=== PATIENT | female | born 1960 | race Caucasian/White ===

== ENCOUNTER 2024-06-10 16:25 | Emergency (ER) | payer MEDICARE, OTHER ==
[~2024-06-10] VITALS: Ht 170.2 cm; Wt 142.0 kg
[~2024-06-10 16:25] MED LIST: DAILY MULTIPLE1 EACH PO; GLUCOPHAGE500 MG PO; IBUPROFEN800 MG PO; LEVOTHYROXINE200 MCG PO; NORCO 5-325 TA1 EACH PO; NORCO 7.5-3251 EACH PO; SUPER B COMPLE150 MG PO; VITAMIN B122500 MCG PO; VITAMIN D-32000 UNI1 PO; VITAMIN D250000 UNIT PO; VITAMIN D50000 UNI1 PO
[2024-06-10] MEDS ORDERED: NITROGLYCERIN 0.4 MG SUBL SL PRN (16:30)
[2024-06-10] MEDS ORDERED: ASPIRIN 81 MG CHEW PO ONE (16:30)
[2024-06-10] MEDS ORDERED: LORAZEPAM1 MG PO (16:35)
[2024-06-10] MEDS ORDERED: VICTOZA 2-0.6 MG/0.1 SUB-Q (16:36)
[2024-06-10] MEDS ORDERED: dilTIAZem HCL 25 MG/5 ML VIAL IV ONE (16:45)
[2024-06-10] MEDS ORDERED: DILTIAZEM HCl/D5W 125 ML IV ONE (16:45)
[2024-06-10 16:58] LABS: BASOPHILS 0.9 % (0-2); EOSINOPHILS 1.1 % (0-6); HEMATOCRIT 44.4 % (35.0-50.0); HEMOGLOBIN 15.2 g/dL (12.0-18.0); LYMPHOCYTES 13.7 % (24-44); MCH 31.2 (27-36); MCHC 34.2 g/dl (30-36); MCV 91.3 fl (81-99); MONOCYTES 7.9 % (0-12); NEUTROPHILS 76.4 % (39-80); PLATELET COUNT 286 K/uL (140-440); RBC 4.86 M/ul (4.3-5.7); RDW 15.2 (10.5-15.0)
[2024-06-10 17:15] LABS: ALBUMIN 3.8 g/dL (3.4-5.0); ANION GAP 18.8 (7-21); BILIRUBIN, TOTAL 0.8 ng/dL (0.2-1.0); BUN/CREATININE RATIO 15.9 (6.0-28.6); CALCIUM 9.1 mg/dL (8.5-10.1); CREATININE, SERUM 0.88 mg/dL (0.55-1.02); MAGNESIUM 1.4 mg/dL (1.8-2.4); POTASSIUM 3.8 mmol/L (3.5-5.1); PROTEIN, TOTAL 7.6 g/dL (6.4-8.2)
[2024-06-10] MEDS ORDERED: MAGNESIUM SULFATE 2 GM/50 ML BAG IV ONE (18:15)
[2024-06-10] MEDS ORDERED: HEParin SOD (PORCINE) 5,000 UNIT/ML SYR IV ONE (19:30)
[2024-06-10] MEDS ORDERED: HEPARIN SOD,PORK IN 0.45% NACL 500 ML IV SCH (19:30)
[2024-06-10 19:31] LABS: INR 1.09 (0.80-1.30); PROTIME 13.7 Sec (11.2-14.2)
--- NOTE | 2024-06-10 20:36 | EKG ---
[facility] [address] [place] [address] Signed Atrial flutter with 2:1 AV conduction Rightward axis Septal infarct (cited on or before 25-MAR-2018) Abnormal ECG When compared with ECG of 25-MAR-2018 12:35, Atrial flutter has replaced Sinus rhythm Vent. rate has increased BY 67 BPM QRS duration has increased Confirmed by Tu Duran MD ([id number]) on 06/10/2024 8:36:05 PM Electronically Signed By: TU DURAN MD 06/10/242035 PATIENT NAME: MELIDA MEZA Electrocardiogram DATE OF : 62 PHYSICIAN: TU DURAN MD REPORT #: [id number] REPORT IS CONFIDENTIAL AND NOT TO BE RELEASED WITHOUT AUTHORIZATION
[2024-06-10 21:10] VITALS: BP 126/61
== END 2024-06-10 21:10 | disposition short-term general hospital (02) ==
LOC: ED 16:25
PROVIDERS: Emergency Medicine
DX: I48.92 Unspecified atrial flutter (principal); E83.42 Hypomagnesemia; E03.9 Hypothyroidism, unspecified; F17.200 Nicotine dependence, unspecified, uncomplicated; Z91.040 Latex allergy status; Z88.5 Allergy status to narcotic agent; Z79.890 Hormone replacement therapy; Z79.899 Other long term (current) drug therapy
CPT/HCPCS: 36415; 71045; 80053; 83735; 84484; 85025; 85610; 85730; 93005; 93010; 96365; 96375; 99285-25; A9270; J1644; J3475

== ENCOUNTER 2024-10-20 13:17 | Inpatient (IN) | payer MEDICARE, OTHER ==
[2024-10-20] VITALS (7 sets, daily range): BP systolic 70–123; BP diastolic 41–73
[~2024-10-20] VITALS: Ht 170.2 cm; Wt 129.9 kg
[~2024-10-20 13:17] MED LIST changes: +LORAZEPAM1 MG PO; +VICTOZA 2-0.6 MG/0.1 SUB-Q
[2024-10-20] MEDS ORDERED: METOPROLOL SUCC50 MG PO (13:46)
[2024-10-20] MEDS ORDERED: LEVOTHYROXINE50 MCG PO (13:46)
[2024-10-20] MEDS ORDERED: JARDIANCE10 MG PO (13:46)
[2024-10-20] MEDS ORDERED: ELIQUIS5 MG PO (13:46)
[2024-10-20] MEDS ORDERED: LIOTHYRONINE S25 MCG PO (13:46)
[2024-10-20] MEDS ORDERED: SPIRONOLACTONE25 MG PO (13:49)
[2024-10-20] MEDS ORDERED: ENTRESTO 24 MG1 EACH PO (14:01)
[2024-10-20 14:09] LABS: BASOPHILS 0.1 % (0-2); HEMATOCRIT 42.9 % (35.0-50.0); HEMOGLOBIN 14.7 g/dL (12.0-18.0); LYMPHOCYTES 7.6 % (24-44); MCH 28.5 (27-36); MCHC 34.2 g/dl (30-36); MCV 83.3 fl (81-99); MONOCYTES 9.1 % (0-12); NEUTROPHILS 83.2 % (39-80); PLATELET COUNT 280 K/uL (140-440); RBC 5.14 M/ul (4.3-5.7); RDW 15.6 (10.5-15.0)
[2024-10-20] MEDS ORDERED: SODIUM CHLORIDE 0.9% 1,000 ML IV ONE (14:15)
[2024-10-20 14:25] LABS: LACTIC ACID, BLOOD 1.6 mmol/L (0.4-2.0)
[2024-10-20 14:34] LABS: ALBUMIN 3.2 g/dL (3.4-5.0); ALBUMIN/GLOBULIN RATIO 0.74 (1.1-2.4); ANION GAP 16.7 (7-21); BILIRUBIN, TOTAL 0.5 mg/dL (0.2-1.0); BUN/CREATININE RATIO 26.51 (6.0-28.6); CALCIUM 9.2 mg/dL (8.5-10.1); CREATININE, SERUM 1.81 mg/dL (0.55-1.02); POTASSIUM 3.7 mmol/L (3.5-5.1); PROTEIN, TOTAL 7.5 g/dL (6.4-8.2)
[2024-10-20] MEDS ORDERED: SODIUM CHLORIDE 0.9% 1,000 ML IV PRN (14:45)
[2024-10-20] MEDS ORDERED: NOREPINEPHRINE BITARTRATE 250 ML IV SCH (14:45)
[2024-10-20] MEDS ORDERED: AZITHROMYCIN 500 MG in DEXTROSE 5% 250 ML IV ONE (14:45)
[2024-10-20] MEDS ORDERED: CEFTRIAXONE SODIUM 2 GM VIAL ONE (14:45)
[2024-10-20] MEDS ORDERED: CEFTRIAXONE SODIUM 2 GM in SODIUM CHLORIDE 0.9% 100 ML IV ONE (14:45)
[2024-10-20 14:58] LABS: BILIRUBIN, URINE POSITIVE (negative); BLOOD/HGB, URINE MODERATE (Negative); KETONE, URINE TRACE (Negative); LEUK ESTERASE, URINE MODERATE (negative); NITRITE, URINE NEGATIVE (negative); PH, URINE 5.5 (5-7)
[2024-10-20 15:03] LABS: EPITHELIAL CELLS, URINE SQUAMOUS 1+ /lpf (0-1+)
[2024-10-20 15:04] LABS: BACTERIA, URINE 3+ /hpf (negative); CASTS, URINE NONE SEEN \\lpf; COLLECTION TYPE, URINE CLEAN CATCH; CRYSTALS, URINE NONE SEEN (0-1+); REFLEX CULTURE, URINE Yes (No); WHITE BLOOD CELLS, URINE >50 /HPF (0-5)
[2024-10-20 16:22] LABS: CORONAVIRUS COVID-19 AG NEGATIVE (NEGATIVE); INFLUENZA A AG POSITIVE (NEGATIVE); INFLUENZA B AG NEGATIVE (NEGATIVE)
[2024-10-20] MEDS ORDERED: OSELTAMIVIR PHOSPHATE 75 MG CAP PO ONE (18:00)
--- NOTE | 2024-10-20 18:05 | EKG ---
[facility] [address] [place] [address] Signed Sinus rhythm with premature atrial complexes Prolonged QT Abnormal ECG When compared with ECG of 10-JUN-2024 16:31, Sinus rhythm has replaced Atrial flutter Vent. rate has decreased BY 60 BPM QRS duration has decreased Criteria for Septal infarct are no longer present Confirmed by Tu Duran MD ([id number]) on 10/20/2024 6:04:56 PM Electronically Signed By: TU DURAN MD 10/20/24 1805 PATIENT NAME: MELIDA MEZA Electrocardiogram DATE OF : 62 PHYSICIAN: TU DURAN MD REPORT #: [id number] REPORT IS CONFIDENTIAL AND NOT TO BE RELEASED WITHOUT AUTHORIZATION
[2024-10-20] MEDS ORDERED: ACETAMINOPHEN 325 MG TAB PO PRN (18:15)
[2024-10-20] MEDS ORDERED: ALBUTEROL SULFATE 0.083% 3 ML VIAL INH PRN (18:30)
[2024-10-20] MEDS ORDERED: MELATONIN 3 MG TAB PO PRN (21:00)
[2024-10-20] MEDS ORDERED: APIXABAN 5 MG TAB PO SCH (21:00)
[2024-10-20] MEDS ORDERED: methylPREDNISolone SOD SUCC 40 MG/ML VIAL IV SCH (22:30)
[2024-10-21] VITALS (23 sets, daily range): BP systolic 74–137; BP diastolic 50–122
[2024-10-21 05:09] LABS: EOSINOPHILS 0.1 % (0-6); HEMOGLOBIN 14.1 g/dL (12.0-18.0); LYMPHOCYTES 4.4 % (24-44); MCH 28.7 (27-36); MCHC 34.4 g/dl (30-36); MCV 83.2 fl (81-99); MONOCYTES 3.2 % (0-12); NEUTROPHILS 92.3 % (39-80); PLATELET COUNT 278 K/uL (140-440); RBC 4.93 M/ul (4.3-5.7); RDW 15.5 (10.5-15.0)
[2024-10-21 05:16] LABS: ANION GAP 15.1 (7-21); BUN/CREATININE RATIO 27.52 (6.0-28.6); CALCIUM 8.9 mg/dL (8.5-10.1); CREATININE, SERUM 1.09 mg/dL (0.55-1.02); MAGNESIUM 2.3 mg/dL (1.8-2.4); POTASSIUM 4.1 mmol/L (3.5-5.1)
[2024-10-21] MEDS ORDERED: LEVOTHYROXINE SODIUM 125 MCG TAB PO SCH (07:00)
[2024-10-21] MEDS ORDERED: CEFTRIAXONE SODIUM 2 GM VIAL ONE (08:26)
[2024-10-21] MEDS ORDERED: CEFTRIAXONE SODIUM 2 GM in SODIUM CHLORIDE 0.9% 100 ML IV SCH (09:00)
[2024-10-21] MEDS ORDERED: OSELTAMIVIR PHOSPHATE 30 MG CAP PO SCH (09:00)
[2024-10-21] MEDS ORDERED: LEVOTHYROXINE SODIUM 100 MCG TAB PO SCH (09:00)
[2024-10-21] MEDS ORDERED: DOXYCYCLINE HYCLATE 100 MG CAP PO SCH (10:15)
[2024-10-21] MEDS ORDERED: GLUCAGON,HUMAN RECOMBINANT 1 MG/ML VIAL SUB-Q PRN (12:00)
[2024-10-21] MEDS ORDERED: PHARMACY RENAL DOSE ADJUSTMENT 1 DOSE MISC PO SCH (12:00)
[2024-10-21] MEDS ORDERED: DEXTROSE 5% 1,000 ML IV PRN (12:00)
[2024-10-21] MEDS ORDERED: DEXTROSE 50% 50 ML SYR IV PRN ×2 (12:00)
[2024-10-21] MEDS ORDERED: IBLOOD GLUCOSE TEST STRIP 1 EA TEST XX PRN (12:00)
[2024-10-21] MEDS ORDERED: INSULIN LISPRO 100 UNIT/ML ML SUB-Q SCH (12:00)
[2024-10-21] MEDS ORDERED: IBLOOD GLUCOSE TEST STRIP 1 EA TEST XX SCH (12:00)
[2024-10-21] MEDS ORDERED: VENTOLIN HFA18 GM INH (15:21)
[2024-10-21] MEDS ORDERED: MICONAZOLE NITRATE 1 EA BTL TOP PRN (19:30)
[2024-10-22] VITALS (7 sets, daily range): BP systolic 84–148; BP diastolic 56–91
[2024-10-22 05:24] LABS: BASOPHILS 0.1 % (0-2); HEMATOCRIT 38.4 % (35.0-50.0); HEMOGLOBIN 13.2 g/dL (12.0-18.0); LYMPHOCYTES 5.1 % (24-44); MCH 28.4 (27-36); MCHC 34.3 g/dl (30-36); MCV 82.9 fl (81-99); NEUTROPHILS 89.8 % (39-80); PLATELET COUNT 323 K/uL (140-440); RBC 4.63 M/ul (4.3-5.7); RDW 15.4 (10.5-15.0)
[2024-10-22 05:28] LABS: ANION GAP 12.2 (7-21); BUN/CREATININE RATIO 37.75 (6.0-28.6); CALCIUM 8.8 mg/dL (8.5-10.1); CREATININE, SERUM 0.98 mg/dL (0.55-1.02); MAGNESIUM 2.2 mg/dL (1.8-2.4); POTASSIUM 4.2 mmol/L (3.5-5.1)
[2024-10-22] MEDS ORDERED: CEFTRIAXONE SODIUM 2 GM VIAL ONE (08:25)
[2024-10-22] MEDS ORDERED: CEFTRIAXONE SODIUM 2 GM in SODIUM CHLORIDE 0.9% 100 ML IV SCH (09:00)
[2024-10-22] MEDS ORDERED: METOPROLOL SUCCINATE 50 MG TABCR PO SCH (15:19)
[2024-10-23 00:09] VITALS: BP 140/93
[2024-10-23 04:33] VITALS: BP 153/93
[2024-10-23 06:31] LABS: BASOPHILS 0.1 % (0-2); HEMATOCRIT 39.4 % (35.0-50.0); HEMOGLOBIN 13.3 g/dL (12.0-18.0); LYMPHOCYTES 5.1 % (24-44); MCH 27.9 (27-36); MCHC 33.8 g/dl (30-36); MCV 82.5 fl (81-99); NEUTROPHILS 87.8 % (39-80); PLATELET COUNT 377 K/uL (140-440); RBC 4.78 M/ul (4.3-5.7); RDW 15.3 (10.5-15.0)
[2024-10-23 06:41] LABS: ANION GAP 13.9 (7-21); BUN/CREATININE RATIO 42.52 (6.0-28.6); CALCIUM 9.1 mg/dL (8.5-10.1); CREATININE, SERUM 0.87 mg/dL (0.55-1.02); MAGNESIUM 2.1 mg/dL (1.8-2.4); POTASSIUM 3.9 mmol/L (3.5-5.1)
[2024-10-23] MEDS ORDERED: CEFTRIAXONE SODIUM 2 GM VIAL ONE (07:54)
[2024-10-23] MEDS ORDERED: EMPAGLIFLOZIN 10 MG TAB PO SCH (09:00)
[2024-10-23] MEDS ORDERED: SPIRONOLACTONE 25 MG TAB PO SCH (09:00)
[2024-10-23 09:44] VITALS: BP 143/91
[2024-10-23] MEDS ORDERED: LACTOBACILLUS RHAMNOSUS GG 1 EACH CAP PO SCH (10:13)
[2024-10-23] MEDS ORDERED: PSYLLIUM HUSK 1 EA CAP PO PRN (10:15)
[2024-10-23] MEDS ORDERED: DOXYCYCLINE HY100 MG PO (12:29)
[2024-10-23] MEDS ORDERED: OSELTAMIVIR PHO30 MG PO (12:30)
[2024-10-23] MEDS ORDERED: BACTRIM DS TAB1 EACH PO (12:31)
[2024-10-23] MEDS ORDERED: PREDNISONE20 MG PO (12:32)
[2024-10-23] MEDS ORDERED: AMOX TR-K CLV1 EAC1 PO (12:33)
[2024-10-23] MEDS ORDERED: methylPREDNISolone SOD SUCC 40 MG/ML VIAL IV SCH (21:00)
== END 2024-10-23 14:01 | disposition home or self-care (01) | DRG 871 ==
LOC: ED 13:17 → CCU 17:43
PROVIDERS: Emergency Medicine; ADMIT Student in an Organized Health Care Education/Training Program; ATTEND Student in an Organized Health Care Education/Training Program
PROC: 3E03329 Introduction of Other Anti-infective into Peripheral Vein, Percutaneous Approach (ICD-10-PCS; principal; 2024-10-20)
PROC: 3E033XZ Introduction of Vasopressor into Peripheral Vein, Percutaneous Approach (ICD-10-PCS; 2024-10-20)
DX: A41.89 Other specified sepsis (principal); J10.00 Influenza due to other identified influenza virus with unspecified type of pneumonia; J96.01 Acute respiratory failure with hypoxia; R65.21 Severe sepsis with septic shock; N12 Tubulo-interstitial nephritis, not specified as acute or chronic; N17.9 Acute kidney failure, unspecified; E87.1 Hypo-osmolality and hyponatremia; I50.32 Chronic diastolic (congestive) heart failure; E66.9 Obesity, unspecified; I48.91 Unspecified atrial fibrillation; E03.9 Hypothyroidism, unspecified; R94.31 Abnormal electrocardiogram [ECG] [EKG]; Z91.040 Latex allergy status; Z88.5 Allergy status to narcotic agent; F17.210 Nicotine dependence, cigarettes, uncomplicated; Z98.51 Tubal ligation status; Z98.890 Other specified postprocedural states; Z79.890 Hormone replacement therapy; Z79.01 Long term (current) use of anticoagulants; Z79.899 Other long term (current) drug therapy; Z99.81 Dependence on supplemental oxygen
CPT/HCPCS: 36415; 36592; 71045; 71260; 80048; 80053; 81001; 83605; 83735; 83880; 84484; 85025; 87088; 93005; 93010; 93306; 94660; 94762; 94799; 97162; 97166; A9270; J0456; J1815; J2919; J7030; J7060; Q9967

== ENCOUNTER 2025-06-09 11:42 | Emergency (ER) | payer MEDICARE, OTHER ==
--- OUTSIDE RECORDS SUMMARY | ~2025-06-09 | XMS | Continuity of Care Document ---
Demographics + + + | Address | [address] | | | [place] [address] | + + + | Preferred Language | Unknown | + + + | Marital Status | | + + + | Cheondoism Affiliation | Unknown | + + + | Race | White | + + + | Ethnic Group | Not or | + + + Author + + + | Author | [facility] | + + + | Organization | [facility] | + + + | Address | [address] | | | [place] [address] | + + + | Phone | | + + + Care Team Providers + + + + | Care Success Coach Name | Role | Phone | + + + + Unavailable | Unavailable | + + + + Unavailable | Unavailable | + + + + Allergies and Intolerances + + + + + + | date | description | facility | reaction | severity | + + + + + + | 2025-03-19 | Hydromorphone | [facility] - | (no reaction) | Moderate | | 00:00 | | [facility] | | | + + + + + + | 2025-03-19 | Hydromorphone | [facility] - | (no reaction) | Moderate | | 00:00 | | [facility] | | | + + + + + + | 2025-03-19 | Hydromorphone | [facility] - | (no reaction) | Moderate | | 00:00 | | [facility] | | | + + + + + + Encounters No information. Functional Status No information. Immunizations No information. Medications + + + + | date | description | facility | + + + + | (no date) | CYANOCOBALAMIN (VITAMIN | [facility] | | | B-12) | [facility] | + + + + | (no date) | APIXABAN | [facility] | | | | [facility] | + + + + | (no date) | ERGOCALCIFEROL (VITAMIN | [facility] | | | D2) | [facility] | + + + + | (no date) | EMPAGLIFLOZIN | [facility] | | | | [facility] | + + + + | (no date) | SACUBITRIL/VALSARTAN | [facility] | | | | [facility] | + + + + | (no date) | [place]PROFEN [facility] [place] | | [facility] | + + + + | (no date) | SPIRONOLACTONE | [facility] | | | | [facility] | + + + + | (no date) | Cholecalciferol (Vitamin [place] [facility] [place] | D3) | [facility] | + + + + | (no date) | CHOLECALCIFEROL (VITAMIN | [facility] | | | D3) | [facility] | + + + + | (no date) | HYDROCODONE [place] [facility] [place] | BIT/ACETAMINOPHEN | [facility] | + + + + | (no date) | ALBUTEROL SULFATE | [facility] [place] | | [facility] | + + + + | (no date) | METOPROLOL SUCCINATE | [facility] | | | | [facility] | + + + + | (no date) | LEVOTHYROXINE SODIUM | [facility] [place] | | [facility] | + + + + | (no date) | LEVOTHYROXINE SODIUM | [facility] [place] | | [facility] | + + + + Problems No information. Procedures No information. Results/Labs +--------+--------+ +---------+--------+---------+ | test | date | facility | value | unit | notes | +--------+--------+ +---------+--------+---------+ + + | Result panel 1 | + + + + + +--------+ + + | WBC # Bld | 2025-03-19 | | 6.44 | (missing) | (missing) | | Auto | 20:48:07 | [facility] - | | | | | | | [facility] | | | | + + + +--------+ + + + + | Result panel 2 | + + + + + +--------+ + + | Lymphocytes | 2025-03-19 | | 16.3 | (missing) | (missing) | | NFr Bld | 20:48:07 | [facility] | | | | | Auto | [facility] | | | | + + + +--------+ + + + + | Result panel 3 | + + + + + +--------+ + + | Monocytes | 2025-03-19 | | 13.2 | (missing) | (missing) | | NFr Bld Auto | 20:48:07 | [facility] | [facility] | [facility] | | | | + + + +--------+ + + + + | Result panel 4 | + + + + + +-------+ + + | Eosinophil | 2025-03-19 | | 3.0 | (missing) | (missing) | | NFr Bld Auto | 20:48:07 | [facility] | [facility] | [facility] | | | | + + + +-------+ + + + + | Result panel 5 | + + + + + +-------+ + + | Basophils | 2025-03-19 | | 1.1 | (missing) | (missing) | | NFr Bld Auto | 20:48:07 | [facility] | | | | + + + +-------+ + + + + | Result panel 6 | + + + + + +-------+---------+ + | Glucose | 2025-03-19 | | 130 | mg/dL | (missing) | | Radha | 20:48:07 | [facility] | | | | + + + +-------+---------+ + + + | Result panel 7 | + + + + + +------+---------+ + | BUN | 2025-03-19 | | 18 | mg/dL | (missing) | | SerPnelli-[facility] | 20:48:07 | [facility] | | | [facility] | | | | + + + +------+---------+ + + + | Result panel 8 | + + + + + +--------+---------+ + | Creat | 2025-03-19 | | 0.97 | mg/dL | (missing) | | [facility] | 20:48:07 | [facility] | [facility] | | | | + + + +--------+---------+ + + + | Result panel 9 | + + + + + +------+ + + | eGFRcr | 2025-03-19 | | 66 | (missing) | (missing) | | SerPlBld | 20:48:07 | [facility] | | | | | CKD-EPI 2020 | [facility] | | | | + + + +------+ + + + + | Result panel 10 | + + + + + +---------+ + + | BUN/Creat | 2025-03-19 | | 18.55 | (missing) | (missing) | | SerPl | 20:48:07 | [facility] | [facility] | | | | + + + +---------+ + + + + | Result panel 11 | + + + + + +-------+ + + | Sodium | 2025-03-19 | | 141 | (missing) | (missing) | | SerPl-sCnc | 20:48:07 | [facility] | | | | + + + +-------+ + + + + | Result panel 12 | + + + + + +--------+ + + | RBC # Bld | 2025-03-19 | | 5.32 | (missing) | (missing) | | Auto | 20:48:07 | [facility] | | | | + + + +--------+ + + + + | Result panel 13 | + + + + + +-------+ + + | Potassium | 2025-03-19 | | 3.7 | (missing) | (missing) | | SerPl-sCnc | 20:48:07 | [facility] | | | | + + + +-------+ + + + + | Result panel 14 | + + + + + +-------+ + + | Chloride | 2025-03-19 | | 105 | (missing) | (missing) | | SerPl-sCnc | 20:48:07 | [facility] | | | | + + + +-------+ + + + + | Result panel 15 | + + + + + +------+ + + | CO2 | 2025-03-19 | | 22 | (missing) | (missing) | | SerPl-sCnc | 20:48:07 | [facility] | [facility] | | | | + + + +------+ + + + + | Result panel 16 | + + + + + +--------+ + + | Anion Gap | 2025-03-19 | | 17.7 | (missing) | (missing) | | SerPl | 20:48:07 | [facility] | | | | | Calculated.4 | [facility] | | [facility] | | | | + + + +--------+ + + + + | Result panel 17 | + + + + + +-------+---------+ + | Calcium | 2025-03-19 | | 9.2 | mg/dL | (missing) | | SerPl-[facility] | 20:48:07 | [facility] | [facility] | | | | + + + +-------+---------+ + + + | Result panel 18 | + + + + + +-------+---------+ + | Magnesium | 2025-03-19 | | 1.7 | mg/dL | (missing) | | SerPl-mCnc | 20:48:07 | [facility] | | | | + + + +-------+---------+ + + + | Result panel 19 | + + + + + +-------+ + + | Prot | 2025-03-19 | | 7.0 | (missing) | (missing) | | SerPl-mCnc | 20:48:07 | [facility] | | | | + + + +-------+ + + + + | Result panel 20 | + + + + + +-------+ + + | Albumin | 2025-03-19 | | 3.3 | (missing) | (missing) | | SerPl-mCnc | 20:48:07 | [facility] | | | | + + + +-------+ + + + + | Result panel 21 | + + + + + +-------+ + + | Globulin | 2025-03-19 | | 3.7 | (missing) | (missing) | | Ser-mCnc | 20:48:07 | [facility] | | | | + + + +-------+ + + + + | Result panel 22 | + + + + + +--------+ + + | | 2025-03-19 | | 0.89 | (missing) | (missing) | | Albumin/Glob | 20:48:07 | [facility] | | | | | SerPl | [facility] | | | | + + + +--------+ + + + + | Result panel 23 | + + + + + +--------+ + + | Hgb | 2025-03-19 | | 15.2 | (missing) | (missing) | | Bld-mCnc | 20:48:07 | [facility] | | | | + + + +--------+ + + + + | Result panel 24 | + + + + + +-------+---------+ + | Bilirub | 2025-03-19 | | 0.4 | mg/dL | (missing) | | SerPl-mCnc | 20:48:07 | [facility] | | | | + + + +-------+---------+ + + + | Result panel 25 | + + + + + +------+ + + | AST | 2025-03-19 | | 28 | (missing) | (missing) | | SerPl-cCnc | 20:48:07 | [facility] | | | | + + + +------+ + + + + | Result panel 26 | + + + + + +------+ + + | ALT | 2025-03-19 | | 37 | (missing) | (missing) | | [facility] | 20:48:07 | [facility] | | | | + + + +------+ + + + + | Result panel 27 | + + + + + +------+ + + | ALP | 2025-03-19 | | 85 | (missing) | (missing) | | SerPl-cCnc | 20:48:07 | [facility] | | | | + + + +------+ + + + + | Result panel 28 | + + + + + +--------+ + + | Hct VFr.DF | 2025-03-19 | | 44.8 | (missing) | (missing) | | Bld Auto | 20:48:07 | [facility] | | | | + + + +--------+ + + + + | Result panel 29 | + + + + + +--------+ + + | RBC Auto | 2025-03-19 | | 84.2 | (missing) | (missing) | | | 20:48:07 | [facility] | | | | + + + +--------+ + + + + | Result panel 30 | + + + + + +--------+ + + | MCH RBC Qn | 2025-03-19 | | 28.6 | (missing) | (missing) | | Auto | 20:48:07 | [facility] | | | | + + + +--------+ + + + + | Result panel 31 | + + + + + +--------+ + + | MCHC RBC | 2025-03-19 | | 33.9 | (missing) | (missing) | | Auto-EntMCnc | 20:48:07 | [facility] | | | | + + + +--------+ + + + + | Result panel 32 | + + + + + +-------+ + + | Platelet # | 2025-03-19 | | 171 | (missing) | (missing) | | Bld Auto | 20:48:07 | [facility] | | | | + + + +-------+ + + + + | Result panel 33 | + + + + + +--------+ + + | Neutrophils | 2025-03-19 | | 65.6 | (missing) | (missing) | | NFr Bld | 20:48:07 | [facility] | | | | | Auto | [facility] | | | | + + + +--------+ + + Social History +--------+ + + | date | description | facility | +--------+ + + Vital Signs + + + +---------+ | date | measurement | value | units | + + + +---------+ | 2025-03-19 00:00 | BMI | 45.4 | kg/m2 | + + + +---------+ | 2025-03-19 00:00 | BP_diastolic | 98 | mmHg | + + + +---------+ | 2025-03-19 00:00 | BP_systolic | 120 | mmHg | + + + +---------+ | 2025-03-19 00:00 | heart_rate | 98 | /min | + + + +---------+ | 2025-03-19 00:00 | height_metric | 170.18 | cm | + + + +---------+ | 2025-03-19 00:00 | height_standard | 67 | in | + + + +---------+ | 2025-03-19 00:00 | o2_saturation | 96 | % | + + + +---------+ | 2025-03-19 00:00 | respiration_rate | 15 | /min | + + + +---------+ | 2025-03-19 00:00 | temperature_metric | 37.06 | C | | | | | | + + + +---------+ | 2025-03-19 00:00 | | 98.7 | F | | | temperature_standar | | | | | d | | | + + + +---------+ | 2025-03-19 00:00 | weight_metric | 131.5 | kg | + + + +---------+ | 2025-03-19 00:00 | weight_standard | 289.91 | lb | + + + +---------+"
[~2025-06-09 11:42] MED LIST changes: +AMOX TR-K CLV1 EAC1 PO; +BACTRIM DS TAB1 EACH PO; +DOXYCYCLINE HY100 MG PO; +ELIQUIS5 MG PO; +ENTRESTO 24 MG1 EACH PO; +JARDIANCE10 MG PO; +LEVOTHYROXINE50 MCG PO; +LIOTHYRONINE S25 MCG PO; +METOPROLOL SUCC50 MG PO; +OSELTAMIVIR PHO30 MG PO; +PREDNISONE20 MG PO; +SPIRONOLACTONE25 MG PO; +VENTOLIN HFA18 GM INH
[2025-06-09 12:00] LABS: BASOPHILS 0.9 % (0.1-1.2); EOSINOPHILS 2.8 % (0.7-5.8); LYMPHOCYTES 19.7 % (19.3-51.7); MCH 28.1 PG (25.6-32.2); MCHC 33.1 g/dL (32.2-35.5); MCV 85.0 fL (79.4-94.8); MONOCYTES 11.9 % (4.7-12.5); NEUTROPHILS 64.1 % (34.0-71.1); RBC 5.87 M/uL (3.93-5.22)
[2025-06-09] MEDS ORDERED: ASPIRIN 81 MG CHEW PO ONE (12:00)
[2025-06-09] MEDS ORDERED: MAGNESIUM GLYC120 M2 PO (12:15)
[2025-06-09 12:19] LABS: ALT (SGPT) 47.0 U/L (14-59); AST (SGOT) 25.0 U/L (15-37); GLOMERULAR FILTRATION RATE,EST 74.0 mL/min (>60); PROTEIN, TOTAL 7.3 g/dL (6.4-8.2); UREA NITROGEN 20.0 mg/dL (7-18)
[2025-06-09 13:54] LABS: TSH, 3RD GENERATION 0.172 uIU/mL (0.358-3.740)
[2025-06-09 14:25] VITALS: BP 93/76
--- NOTE | 2025-06-10 21:38 | EKG ---
[facility] [address] [place] [address] Signed Sinus tachycardia with 1st degree AV block Septal infarct (cited on or before 25-MAR-2018) Abnormal ECG When compared with ECG of 19-MAR-2025 20:32, Sinus rhythm has replaced Atrial flutter Confirmed by Tiesha Arroyo MD () on 06/10/2025 9:38:20 PM Electronically Signed By: TIESHA ARROYO MD 06/10/25 2138 PATIENT NAME: MELIDA MEZA Electrocardiogram DATE OF : 62 PHYSICIAN: TIESHA ARROYO MD REPORT #: [id number] REPORT IS CONFIDENTIAL AND NOT TO BE RELEASED WITHOUT AUTHORIZATION
--- NOTE | 2025-06-10 21:41 | EKG ---
[facility] [address] [place] [address] Signed Atrial flutter with variable AV block Low voltage QRS Cannot rule out Anteroseptal infarct (cited on or before 25-MAR-2018) Abnormal ECG When compared with ECG of 09-JUN-2025 11:49, Atrial flutter has replaced Sinus rhythm Confirmed by Tiesha Arroyo MD () on 06/10/2025 9:41:11 PM Electronically Signed By: TIESHA ARROYO MD 06/10/252140 PATIENT NAME: MELIDA MEZA Electrocardiogram DATE OF : 62 PHYSICIAN: TIESHA ARROYO MD REPORT #: [id number] REPORT IS CONFIDENTIAL AND NOT TO BE RELEASED WITHOUT AUTHORIZATION
== END 2025-06-09 14:25 | disposition home or self-care (01) ==
LOC: ED 11:42
PROVIDERS: Emergency Medicine
DX: I48.91 Unspecified atrial fibrillation (principal); I50.9 Heart failure, unspecified; E11.9 Type 2 diabetes mellitus without complications; F17.200 Nicotine dependence, unspecified, uncomplicated; Z88.5 Allergy status to narcotic agent; Z91.040 Latex allergy status; Z79.01 Long term (current) use of anticoagulants; Z79.899 Other long term (current) drug therapy
CPT/HCPCS: 36415; 71045; 80053; 83735; 84439; 84443; 84484; 85025; 85379; 93005; 93010; 99285-25

== ENCOUNTER 2025-07-25 09:11 | Emergency (ER) | payer MEDICARE, OTHER ==
[~2025-07-25] VITALS: Ht 170.2 cm; Wt 125.0 kg
[~2025-07-25 09:11] MED LIST changes: +MAGNESIUM GLYC120 M2 PO
[2025-07-25 09:49] VITALS: BP 137/98
== END 2025-07-25 09:50 | disposition home or self-care (01) ==
LOC: ED 09:11
DX: T16.1XXA Foreign body in right ear, initial encounter (principal); E03.9 Hypothyroidism, unspecified; E11.9 Type 2 diabetes mellitus without complications; F17.200 Nicotine dependence, unspecified, uncomplicated; W44.8XXA Other foreign body entering into or through a natural orifice, initial encounter; Z79.899 Other long term (current) drug therapy; Z88.5 Allergy status to narcotic agent; Z91.040 Latex allergy status
CPT/HCPCS: 69200; 99282